=== PATIENT | male | born 2000 | race African-American/Black ===

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

== ENCOUNTER 2021-10-10 07:31 | Emergency (ER) | payer MEDICAID ==
[~2021-10-10] VITALS: Ht 162.6 cm; Wt 59.0 kg
--- NOTE | 2021-10-10 08:00 | NUR ---
21 YRS MALE ACOMMPANY BY MOTHER C/O RT EYES STAI NO REDNESS ON SWALLEN NO DIFFCULY SEEN BY DR. XAVIER PLAN OF CARE RX
[2021-10-10 08:04] VITALS: BP 136/65
[2021-10-10] MEDS ORDERED: ERYT3.5O9 RIGHTEYE (08:12)
--- NOTE | 2021-10-10 08:14 | NUR ---
Patient discharged to home in stable condition. Written and verbal after care instructions given. Patient verbalizes understanding of instruction.
--- NOTE | 2021-10-10 08:15 | NUR ---
D/C INSTRACTION GIVEN TO PT AND MOTHER FULLY UNDERSTOOD
== END 2021-10-10 08:14 | disposition home or self-care (01) ==
LOC: ER 07:34
DX: H00.011 Hordeolum externum right upper eyelid (principal); Z87.19 Personal history of other diseases of the digestive system; Z79.899 Other long term (current) drug therapy

== ENCOUNTER 2024-10-07 16:49 | Emergency (ER) | payer MEDICAID ==
[~2024-10-07] VITALS: Ht 162.6 cm; Wt 61.2 kg
[~2024-10-07 16:49] MED LIST: ERYT3.5O9 RIGHTEYE
[2024-10-07 16:56] VITALS: BP 115/74; TEMP 98.4; O2SAT 97
[2024-10-07] MEDS ORDERED: CETI-108 PO (17:06)
== END 2024-10-07 17:14 | disposition home or self-care (01) ==
LOC: ER 16:49
DX: K13.0 Diseases of lips (principal); Z79.899 Other long term (current) drug therapy